=== PATIENT | female | born 1960 | race Caucasian/White ===

== ENCOUNTER 2016-05-25 14:03 | Emergency (ER) | payer OTHER ==
[2016-05-25] MEDS ORDERED: IOPAMIDOL 300 (61%) 100 ML VIAL IV ONE (14:04)
[2016-05-25] MEDS ORDERED: ONDANSETRON 4 MG/2ML 2 ML VIAL ONE (14:42)
[2016-05-25] MEDS ORDERED: HYDROMORPHONE HCL 0.5 MG/0.5 ML SYRINGE ONE (14:43)
[2016-05-25 15:05] LABS: ABSOLUTE NEUTROPHIL COUNT 9.3 K/mm3 (1.8-7.7); BASO % 0.2 % (0.2-1.0); EOS % 0.2 % (0.9-2.9); HEMATOCRIT 39.9 % (37.0-47.0); HEMOGLOBIN 13.7 gm/l (12.0-16.0); IMM NEUT% 0.3 % (0-1); LYMPH # 2.3 (1.0-4.8); LYMPH % 18.8 % (15-45); MEAN CORPUSCULAR HEMOGLOBIN 31.9 pg (27.0-31.0); MEAN CORPUSCULAR HGB CONC 34.3 g/dl (33.0-37.0); MEAN PLATELET VOLUME 11.3 fl (7.4-10.4); MONO # 0.5 (0.0-0.8); MONO % 4.2 % (4-12); NEUT % 76.3 % (43-75); PLATELET COUNT 205 K/mm3 (130-400); RED CELL DISTRIBUTION WIDTH 11.8 % (11.5-14.5)
[2016-05-25 15:30] LABS: ALB/GLOB RATIO 1.2 (>1.0); ALBUMIN 3.9 gm/dL (3.5-5.7); CALCIUM 9.2 mg/dL (8.6-10.3)
--- NOTE | 2016-05-25 16:16 | CT ---
ABD/PELVIS W/ CON COMPARISON: CT abdomen and pelvis, 02/01/2015 HISTORY: Left-sided abdominal pain in patient with a past history of diverticulitis and pancreatitis. Technique: No oral contrast. Intravenous injection 100 mL Isovue 300 and. Using a [employer] [address] scanner, images were obtained from the diaphragm to the floor the pelvis. An automated dose reduction technique was used to minimize patient radiation dose. Dose information: CTDIvol (mGy): 24.80 DLP(mGycm): 1281.40 FINDINGS: Lung bases: Normal. Inferior mediastinum and heart: Normal. Liver: Normal. Gallbladder: Removed. Bile ducts: Normal. Pancreas: Normal. Spleen: Normal. Adrenal glands: Normal. Kidneys: Normal enhancement. Simple cyst of the left kidney. Ureters: Normal Urinary bladder: Normal. Uterus and adnexa: Hysterectomy. Blood vessels: Normal Lymph nodes: Normal Stomach: Normal Duodenum: Normal Small intestine: Normal Appendix: Removed. Colon: Short segment of proximal sigmoid colon with bowel wall thickening and inflammatory stranding in the adjacent fat. Abdominal wall and supporting musculature: Normal Bones: Normal IMPRESSION: 1. Diverticulitis of the proximal sigmoid colon. No abscess. No perforation. 2. Incidental findings include cholecystectomy, simple cyst of the left kidney, hysterectomy, and appendectomy. The report was sent to the emergency department electronic medical record system, 05/25/2016 at 16:17.
[2016-05-25 16:26] LABS: URINE BILIRUBIN NEGATIVE (NEGATIVE); URINE BLOOD NEGATIVE (NEGATIVE); URINE GLUCOSE (UA) NEGATIVE (NEGATIVE); URINE LEUKOCYTE ESTERASE NEGATIVE (NEGATIVE); URINE NITRITE NEGATIVE (NEGATIVE); URINE PROTEIN NEGATIVE (NEGATIVE); URINE UROBILINOGEN NORMAL (0-1 mg/dl)
[2016-05-25 16:30] LABS: URINE APPEARANCE CLEAR; URINE COLOR AMBER
[2016-05-25] MEDS ORDERED: METRONIDAZOLE 500 MG/NS 100 ML 100 ML IV ONE (17:07)
[2016-05-25] MEDS ORDERED: OXYCODONE HCL 5 MG TABLET ONE (17:07)
[2016-05-25] MEDS ORDERED: CIPROFLOXACIN IV 400 MG 200 ML IV ONE (17:07)
== END 2016-05-25 19:53 | disposition home or self-care (01) ==
LOC: ED 14:03
DX: K57.92 Diverticulitis of intestine, part unspecified, without perforation or abscess without bleeding (principal); I10 Essential (primary) hypertension; K21.9 Gastro-esophageal reflux disease without esophagitis
CPT/HCPCS: 85025; 80053; 81003; 74177; 96375 ×2; 99283 ×2; 96365; 96367 ×2; J0744; A9270; J2405; Q9967; J1170